=== PATIENT | male | born 1980 | race Caucasian/White ===

== ENCOUNTER 2017-04-20 03:39 | Emergency (ER) | payer SELFPAY ==
[~2017-04-20] VITALS: Ht 170.2 cm; Wt 80.0 kg
[2017-04-20 03:41] VITALS: BP 160/96; PULSE 83; RESP 16; TEMP 97.8; O2SAT 99
[2017-04-20] MEDS ORDERED: VIST50CA PO (04:21)
--- NOTE | 2017-04-20 04:27 | PD ---
HPI Chief Complaint: Anxiety Time Seen by Provider: 04:23 Travel History International Travel<30 days: No Contact w/Intl Traveler<30days: No Traveled to known affect area: No History of Present Illness HPI 36-year-old white male presents to emergency department requesting treatment for anxiety. He states that he is been having more anxiety recently. He is been having problems dealing with separation from his . He also states that he has been treated in the past for anxiety and depression. He also has a history of substance abuse. He claims that he's been sober off of alcohol for over a year. He also states that he has been recently smoking marijuana and snorting cocaine. He's been feeling more paranoid. He states that people are following him. He denies any suicidal homicidal ideation. He states that he is off his medications would like to get back on medications. He denies any toxic ingestions. PFSH Past Medical History Narrative Medical Anxiety, depression, substance abuse Anxiety: Yes Cerebrovascular Accident: No Diabetes: No Immune Disorder: No Myocardial Infarction: No Tetanus Vaccination: < 5 Years Past Surgical History Surgical History: No Previous Surgery Social History Alcohol Use: Yes Tobacco Use: Yes Substance Use: Yes (marijuana and cocaine) Allergies-Medications (Allergen,Severity, Reaction): Coded Allergies: No Known Allergies (Unverified , 04/20/17) Reported Meds & Prescriptions Reported Meds & Active Scripts Active Vistaril (Hydroxyzine Pamoate) 50 Mg Cap 50 Mg PO QID PRN Review of Systems Except as stated in HPI: all other systems reviewed are Neg Physical Exam Narrative GENERAL: This is a well-nourished, well-developed patient, in no apparent distress. SKIN: No rashes, ecchymoses or lesions. Warm and dry. Patient has track handy on both arms. HEAD: Atraumatic. Normocephalic. EYES: PERRL, EOMI, no discharge or injection. No scleral icterus. EARS: Clear NOSE: Nasal turbinates appear normal. THROAT: Mucosa pink and moist. Airway patent. NECK: Trachea midline. supple, moves head freely. LUNGS: Clear to auscultation. CV: Regular in rhythm. ABDOMEN: Soft nontender. EXT: No clubbing cyanosis or edema. Data Data Last Documented VS Vital Signs Date Time Temp Pulse Resp B/P Pulse Ox O2 Delivery O2 Flow Rate FiO2 7/2/17 03:41 97.8 83 16 160/96 99 Room Air MDM Medical Decision Making Medical Screen Exam Complete: Yes Emergency Medical Condition: Yes Medical Record Reviewed: Yes Differential Diagnosis Differential diagnoses: Anxiety, depression, substance abuse, malingering Narrative Course The patient does not meet criteria for admission on a voluntary basis. He does not meet criteria for Styles act. The patient does admit to being paranoid and having spells of anxiety. I agreed to give him a prescription for Vistaril for his anxiety and he's been advised to follow-up with [facility] tomorrow. This is anxiety, substance abuse Diagnosis Primary Impression: Anxiety Additional Impression: Substance abuse Referrals: [facility] (Out patient) 1 day [facility] Patient Instructions: General Instructions Additional Instructions: Rest. Increase fluids. Avoid alcohol. Avoid illegal substances. Vistaril. Follow-up with [facility] Follow-up with [facility] for [facility]. Do not operate a car or any heavy machinery under the influence of alcohol or drugs. Follow-up with a medical doctor this week. Return to the ER for emergencies Med/Other Pt SpecificInfo: Prescription(s) given Scripts Hydroxyzine Pamoate (Vistaril)50 Mg Cap50 Mg PO QID PRN (ANXIETY) #30 CAP Prov:Riya Morales MD 04/20/17 Disposition: 01 DISCHARGE HOME Condition: Stable Gen Guzman Apr 20, 2017 04:27
== END 2017-04-20 06:02 | disposition home or self-care (01) ==
LOC: NEPD 03:39
DX: F41.9 Anxiety disorder, unspecified (principal); F19.10 Other psychoactive substance abuse, uncomplicated
CPT/HCPCS: 99283

== ENCOUNTER 2017-09-03 14:02 | Inpatient (IN) | payer OTHER ==
[~2017-09-03] VITALS: Ht 170.2 cm; Wt 81.7 kg
[~2017-09-03 14:02] MED LIST: VIST50CA PO
[2017-09-03 17:06] VITALS: BP 140/80; PULSE 77; RESP 17; TEMP 98.5; O2SAT 100
[2017-09-03] MEDS ORDERED: ZOLO50TA PO (17:32)
[2017-09-03] MEDS ORDERED: SERO100T PO (17:34)
[2017-09-03] MEDS ORDERED: ADDE20 PO (17:34)
[2017-09-03] MEDS ORDERED: ALUMINUM/MAGNESIUM/SIMETH 30 ML CUP PO PRN (18:00)
[2017-09-03] MEDS ORDERED: hydrOXYzine HCL 50 MG TAB PO PRN (18:00)
[2017-09-03] MEDS ORDERED: MAGNESIUM HYDROXIDE SUSP 30 ML CUP PO PRN (18:00)
[2017-09-03] MEDS ORDERED: diphenhydrAMINE HCL 50 MG CAP PO PRN (18:00)
[2017-09-03] MEDS ORDERED: ACETAMINOPHEN 325 MG TAB PO PRN (18:00)
[2017-09-04 08:44] LABS: ANION GAP 7 MEQ/L (5-15); BICARBONATE 25.7 MEQ/L (21.0-32.0); BLOOD UREA NITROGEN 8 MG/DL (7-18); CHLORIDE 109 MEQ/L (98-107); GLOMERULAR FILTRATION RATE 81 ML/MIN (>89); POTASSIUM 4.5 MEQ/L (3.5-5.1); SODIUM (NA) 142 MEQ/L (136-145)
[2017-09-04 08:55] LABS: LDL CHOLESTEROL 84 MG/DL (0-99)
[2017-09-04] MEDS ORDERED: NICOTINE 21 MG/24 HR PATCH T-DERMAL SCH (09:00)
[2017-09-04] MEDS ORDERED: REMOVE OLD NICOTINE PATCH T-DERMAL SCH (09:00)
[2017-09-04] MEDS ORDERED: ACETAMINOPHEN 325 MG TAB PO PRN (11:00)
[2017-09-04] MEDS ORDERED: ALUMINUM/MAGNESIUM/SIMETH 30 ML CUP PO PRN (11:00)
[2017-09-04] MEDS ORDERED: MAGNESIUM HYDROXIDE SUSP 30 ML CUP PO PRN (11:00)
--- NOTE | 2017-09-04 11:20 | HHI.HP ---
Provisional Diagnosis Admission Date Sep 03, 2017 at 16:54 [place]. Adjustment disorder with mixed disturbances of emotion and conduct f 43.25, cocaine abuse f 43.10 Certification of Person's Competence To Provide Express and Informed Consent I have personally examined Norm Santiago , a person being served at [facility] on, Sep 04, 2017 11:04. Express and informed consent means consent voluntarily given in writing, by a competent person, after sufficient explanation and disclosure of the subject matter involved to enable the person to make a knowing and willful decision without any element of force, fraud, deceit, duress, or other form of constraint or coercion. This person is 18 years of age or older, is not now known to be incompetent to consent to treatment with a guardian advocate, and does not have a health care surrogate or proxy currently making medical treatment decisions. I have found this person to be one of the following: [xxx] Competent to provide express and informed consent, as defined above, for voluntary admission to this facility and is competent to provide express and informed consent for treatment. He/she has the consistent capacity to make well reasoned, willful, and knowing decisions concerning his or her medical or mental health treatment. The person fully and consistently understands the purpose of the admission for examination/placement and is fully capable of personally exercising all rights assured under [place] Incompetent to provide express and informed consent to voluntary admission, and this is incompetent to provide express and informed consent to treatment. The person must be transferred to involuntary status and a petition for a guardian advocate filed with the Circuit Court. [] Refusing to provide express and informed consent to voluntary admission but is competent to provide express and informed consent for treatment. The person must be discharged or transferred to involuntary status. Form shall be completed within 24 hours of a person's arrival at the receiving facility and filed in the clinical record of each person: 1. Admitted on a voluntary basis 2. Permitted to provide express and informed consent to his/her own treatment 3. Allowed to transfer from involuntary to voluntary status 4. Prior to permitting a person to consent to his or her own treatment after having been previously found incompetent to consent to treatment. History of Present Illness Capacity: Has Capacity Psych Chief Complaint: suicidal ideation HPI Patient is a 37-year-old white male who is a transfer here under [facility]les act dated 09/03/17 at 8:17 AM signed by a Uzair Espino at [facility] that documented reviewed and agreed with essentially stating. Patient states " I just don't want to live anymore" patient reports suicidal ideation due to drug abuse history and family issues. Patient seen screened in that ED urine toxicology positive for cocaine. Patient transferred for here once medically cleared there. Patient seen on his room and 2600 with RYAN gould and medical student Deshaun. Patient alert oriented white male somewhat scruffy in appearance. Stating he is had a long history of substance abuse including cocaine and opiates including intravenous opiate use. He states this time he is a frequent user of "mollies". He states his the living with his brother. Has had some episodes of sobriety. 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 Patient denies suicidality homicidality voices or visions. States he has been in a detox in [place] a few years ago with her rehabilitation stay after that. He denies any inpatient psychiatric hospitalizations. Is somewhat vague about outpatient psychiatric services. This and note that he may have been seen as [facility] the past without documented Vistaril and Zoloft in his past. Patient did not recognize her verify any of the medications that are listed under our med reconciliation. Patient denies any physical or sexual abuse, states his history is of addictions in his family of origin. He states she's been and twice he has 3 children with whom he has little contact. At this time patient does not meet Styles criteria will lift Styles act patient to be discharged to himself, no Rx by me, will refer to [facility] act for follow-up, referred to NA, referred to [facility] act for outpatient voluntary substance abuse assessment. Also refer to sober houses in [facility] Review of Systems Constitutional: DENIES: Diaphoretic episodes, Fatigue, Fever, Weight gain, Weight loss, Chills, Dizziness, Change in appetite, Night Sweats Endocrine: DENIES: Heat/cold intolerance, Polydipsia, Polyuria, Polyphagia Eyes: DENIES: Blurred vision, Diplopia, Eye inflammation, Eye pain, Vision loss , Photosensitivity, Double Vision Ears, nose, mouth, throat: DENIES: Tinnitus, Hearing loss, Vertigo, Nasal discharge, Oral lesions, Throat pain, Hoarseness, Ear Pain, Running Nose, Epistaxis, Sinus Pain, Toothache, Odynophagia Respiratory: DENIES: Apneas, Cough, Snoring, Wheezing, Hemoptysis, Sputum production, Shortness of breath Cardiovascular: DENIES: Chest pain, Palpitations, Syncope, Dyspnea on Exertion , PND, Lower Extremity Edema, Orthopnea, Claudication Gastrointestinal: DENIES: Abdominal pain, Black stools, Bloody stools, Constipation, Diarrhea, Nausea, Vomiting, Difficulty Swallowing, Anorexia Genitourinary: DENIES: Sexual dysfunction, Urinary frequency, Urinary incontinence, Urgency, Hematuria, Dysuria, Nocturia, Penile Discharge, Testicular Pain, Testicular Swelling Musculoskeletal: DENIES: Joint pain, Muscle aches, Stiffness, Joint Swelling, Back pain, Neck pain Integumentary: DENIES: Abnormal pigmentation, Nail changes, Pruritus, Rash Hematologic/lymphatic: DENIES: Bruising, Lymphadenopathy Immunologic/allergic: DENIES: Eczema, Urticaria Neurologic: DENIES: Abnormal gait, Headache, Localized weakness, Paresthesias, Seizures, Speech Problems, Tremor, Poor Balance Psychiatric: COMPLAINS OF: Anxiety (mild) Past Psych History Psychological trauma history Denies Violence risk - others (6 mos) Denies Violence risk - self (6 mos) Denies Substance Abuse History Drugs/Alcohol past 12 months Active cocaine use history of opiate abuse Past Family Social History Coded Allergies: No Known Allergies (Unverified Allergy, Unknown, 09/03/17) Active Scripts Hydroxyzine Pamoate (Vistaril) 50 Mg Cap, 50 MG PO QID Y for ANXIETY, #30 CAP Prov:Riya Morales MD 04/20/17 Reported Medications Quetiapine (Seroquel) 100 Mg Tab, 150 MG PO HS, #30 TAB 0 Refills 09/03/17 Amphetamine-Dextroamphetamine (Adderall) 20 Mg Tab, 20 MG PO DAILY for Hyperactivity Control, #30 TAB 0 Refills Avoid late evening doses. Space doses at least 4 to 6 hours if more than once/day dosing. 09/03/17 Sertraline (Zoloft) 50 Mg Tab, 50 MG PO DAILY, #30 TAB 0 Refills 09/03/17 Current Medications Medications (Trade) Dose Ordered Sig/Pito Route Start Time Stop Time Status Last Admin (Benadryl) 50 mg HS PRN PO 09/03/17 18:00 (Tylenol) 650 mg Q4H PRN PO 09/03/17 18:00 (Milk Of Magnesia Liq) 30 ml DAILY PRN PO 09/03/17 18:00 (Mag-Al Plus Susp Liq) 30 ml Q6H PRN PO 09/03/17 18:00 (Habitrol 21 Mg Patch.24 Hr) 1 patch DAILY T-DERMAL 09/04/17 09:00 09/04/17 09:44 (Atarax) 50 mg Q6H PRN PO 09/03/17 18:00 Miscellaneous Information 1 DAILY T-DERMAL 09/04/17 09:00 Family Psych History Patient states addictive issues in his family of origin Social History Patient twice with 3 children that he has little contact with Patient's Strengths (min. 2) Patient verbal able [facility] Physical Exam Patient seen screened for [facility] and medically cleared. At the present time patient resting quietly in his room on 2600, is in no acute distress, no respiratory distress, no complaints of abdominal pain. Patient moves all 4 extremities out difficulty. No abnormal motor movements noted Vital Signs Vital Signs Date Time Temp Pulse Resp B/P (MAP) Pulse Ox O2 Delivery O2 Flow Rate FiO2 09/03/17 17:06 98.5 77 17 140/80 (100) 100 Lab Results Test 09/04/17 07:21 Blood Urea Nitrogen 8 MG/DL Creatinine 1.03 MG/DL Random Glucose 82 MG/DL Calcium Level 8.9 MG/DL Sodium Level 142 MEQ/L Potassium Level 4.5 MEQ/L Chloride Level 109 MEQ/L Carbon Dioxide Level 25.7 MEQ/L Anion Gap 7 MEQ/L Estimat Glomerular Filtration Rate 81 ML/MIN Triglycerides Level 97 MG/DL Cholesterol Level 149 MG/DL LDL Cholesterol 84 MG/DL HDL Cholesterol 46.0 MG/DL Cholesterol/HDL Ratio 3.23 RATIO Thyroid Stimulating Hormone 3rd Gen 0.855 uIU/ML Mental Status Examination Appearance: Appropriate Consciousness: Alert Orientation: x4 Motor Activity: Normal gait Speech: Unremarkable Language: Adequate Fund of Knowledge: Adequate Attention and Concentration: Other (fair) Memory: Unremarkable Mood: Other (euthymic to mildly dysphoric) Affect: Other (slight decreased range and intensity of affect) Thought Process & Associations: Intact Thought Content: Appropriate Hallucination Type: None Delusion Type: None Suicidal Ideation: No (denies) Suicidal Plan: No (denies) Suicidal Intention: No (denies) Homicidal Ideation: No Homicidal Plan: No Homicidal Intention: No Insight: Poor Judgment: Poor Assessment & Plan Problem List: (1) Adjustment disorder with mixed disturbance of emotions and conduct ICD Codes: F43.25 - Adjustment disorder with mixed disturbance of emotions and conduct (2) Cocaine abuse ICD Codes: F14.10 - Cocaine abuse, uncomplicated Assessment & Plan Estimated LOS: days at this time patient does not meet Styles criteria will lift Styles act allow patient to be discharged from self. No Rx by me. First her act for further assessment, refer [place] [facility] outpatient voluntary substance abuse assessment referred to NA, patient to be given sober living referrals Discharge Planning See above Request HC Surrog/Guard Advoc?: Miguel Mo MD Sep 04, 2017 11:20
--- NOTE | 2017-09-04 11:27 | HHI.DS ---
Psychiatry Discharge Summary Inpatient Psychiatric care?: Yes Advance Directive: No Reason Not Provided: Due to Patient Condition Mental Health AdvanceDirective: No Health Care Proxy: No Admission Admission Date Sep 03, 2017 at 16:54 Admission Diagnosis: (1) Cocaine abuse ICD Code: F14.10 - Cocaine abuse, uncomplicated (2) Adjustment disorder with mixed disturbance of emotions and conduct ICD Code: F43.25 - Adjustment disorder with mixed disturbance of emotions and conduct Brief History Patient is a 37-year-old white male who is a transfer here under Styles act dated 09/03/17 at 8:17 AM signed by a Uzair Espino at [facility] that documented reviewed and agreed with essentially stating. Patient states " I just don't want to live anymore" patient reports suicidal ideation due to drug abuse history and family issues. Patient seen screened in that ED urine toxicology positive for cocaine. Patient transferred for here once medically cleared there. Patient seen on his room and 2600 with RYAN gould and medical student Deshaun. Patient alert oriented white male somewhat scruffy in appearance. Stating he is had a long history of substance abuse including cocaine and opiates including intravenous opiate use. He states this time he is a frequent user of "mollies". He states his the living with his brother. Has had some episodes of sobriety. 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 Patient denies suicidality homicidality voices or visions. States he has been in a detox in [place] a few years ago with her rehabilitation stay after that. He denies any inpatient psychiatric hospitalizations. Is somewhat vague about outpatient psychiatric services. This and note that he may have been seen as [facility] the past without documented Vistaril and Zoloft in his past. Patient did not recognize her verify any of the medications that are listed under our med reconciliation. Patient denies any physical or sexual abuse, states his history is of addictions in his family of origin. He states she's been and twice he has 3 children with whom he has little contact. At this time patient does not meet Stephani criteria will lift Styles act patient to be discharged to himself, no Rx by me, [facility], referred to NA, [facility] for outpatient voluntary substance abuse assessment. Also refer to sober houses in [facility] Tobacco Use In Past 30 Days: 5 or More Cigarettes/Day Alcohol Use: 2-3 Times Per Week Hospital Course Please see above note dictated under brief history, at this time patient does not meet Styles criteria. Patient denies suicidality homicidality voices or visions. Patient to be discharged to himself, no Rx by me, referred to Trae fried for further assessment, referred to Trae fried outpatient voluntary substance abuse assessment, referred to NA. Patient given list of resources for sober living Results Blood Pressure 140 / 80 Vital Signs Date Time Temp Pulse Resp B/P (MAP) Pulse Ox O2 Delivery O2 Flow Rate FiO2 09/03/17 17:06 98.5 77 17 140/80 (100) 100 Laboratory Tests Test 09/04/17 07:21 Chloride Level 109 MEQ/L (98-107) Estimat Glomerular Filtration Rate 81 ML/MIN (>89) Laboratory Results Test 09/04/17 07:21 Cholesterol Level 149 MG/DL (120-200) HDL Cholesterol 46.0 MG/DL (40.0-60.0) LDL Cholesterol 84 MG/DL (0-99) Triglycerides Level 97 MG/DL (42-150) Summary of Procedures None done Pending results at discharge: No Medications # of Antipsychotic meds at D/C: 0 Approp Antipsych med options 1 - Minimum of three failed multiple trials of monotherapy. 2 - Documented plan to taper to monotherapy due to previous use of multiple meds OR cross-taper in progress at D/C. 3 - Documentation of augmentation of Clozapine. 4 - Justification other than those listed in allowable values 1-3, document here : Discharge Discharge Date: Sep 04, 2017 Discharge Diagnosis: (1) Cocaine abuse Diagnosis: Secondary ICD Code: F14.10 - Cocaine abuse, uncomplicated (2) Adjustment disorder with mixed disturbance of emotions and conduct Diagnosis: Principal ICD Code: F43.25 - Adjustment disorder with mixed disturbance of emotions and conduct Pt Condition on Discharge: Stable Discharge Disposition: Discharge Home Discharge Instructions Diet Instructions: As Tolerated, No Restrictions Activities you can perform: Regular-No Restrictions Scheduled Appointment: Trae Fried Discharge Time > 30 minutes Mental Status Examination Appearance: Appropriate Consciousness: Alert Orientation: x4 Motor Activity: Normal gait Speech: Unremarkable Language: Adequate Fund of Knowledge: Adequate Attention and Concentration: Other (fair) Memory: Unremarkable Mood: Other (euthymic to mildly dysphoric) Affect: Other (slight decreased range and intensity of affect) Thought Process & Associations: Intact Thought Content: Appropriate Hallucination Type: None Delusion Type: None Suicidal Ideation: No (denies) Suicidal Plan: No (denies) Suicidal Intention: No (denies) Homicidal Ideation: No Homicidal Plan: No Homicidal Intention: No Insight: Poor Judgment: Poor Discharge/Advance Care Plan Health Problems: (1) Adjustment disorder with mixed disturbance of emotions and conduct (2) Cocaine abuse Goals to promote your health * To prevent worsening of your condition and complications * To maintain your health at the optimal level Directions to meet your goals Take your medications as prescribed Follow your dietary instruction Follow activity as directed Keep your appointments as scheduled Take your immunizations and boosters as scheduled If your symptoms worsen call your PCP, if no PCP go to Urgent Care Center or Emergency Room For 12/05 questions related to your inpatient stay or results of tests pending at discharge, please contact Dr. Miguel Campbell at Smoking is Dangerous to Your Health. Avoid second hand smoking Miguel Campbell MD Sep 04, 2017 11:27
[2017-09-04] MEDS ORDERED: amLODIPine BESYLATE 5 MG TAB PO SCH (11:30)
[2017-09-04 11:56] LABS: HEMOGLOBIN A1a 0.8 %; HEMOGLOBIN A1b 1.6 %; HEMOGLOBIN Ao 86.5 %; HEMOGLOBIN LA1C 1.9 %; HEMOGLOBIN P3 3.4 %
[2017-09-04] MEDS ORDERED: PILL SPLITTER OTHER PRN (12:00)
--- NOTE | 2017-09-04 12:21 | PD.CONS ---
[facility] Reason for Consult Medical management Primary Care Physician No Primary Care Physician Diagnoses: History of Present Illness 37 years old male with history of cocaine abuse, alcohol abuse which she denied but it's documented in EMR, who was admitted to the psychiatry unit on a voluntary base after he expressed suicidal ideation, patient told me he has a history of hepatitis C, and sometimes he get "kidney pain because of the hepatitis C ". Pressure was documented to be elevated on several occasions. Patient currently denied any chest pain short of breath, headache, nausea vomiting abdominal pain diarrhea constipation dysuria urgency or frequency, or back pain. Review of Systems All systems reviewed and was positive for what is mentioned in history of present illness otherwise negative Past Family Social History Allergies: Coded Allergies: No Known Allergies (Unverified Allergy, Unknown, 09/03/17) Past Medical History Hepatitis C ? Hypertension Past Surgical History Oral dental surgery in the past Family History Positive history of drug abuse in the family as per the EMR Social History with 3 children, positive alcohol cocaine, opiate abuse, tobacco abuse Physical Exam Vital Signs Vital Signs Date Time Temp Pulse Resp B/P (MAP) Pulse Ox O2 Delivery O2 Flow Rate FiO2 09/03/17 17:06 98.5 77 17 140/80 (100) 100 Physical Exam GENERAL: This is a well-nourished, well-developed patient, in no apparent distress. SKIN: No rashes, warm and dry HEAD: Atraumatic. Normocephalic. EYES: Pupils equal round and reactive. Extraocular motions intact. No scleral icterus. ENT: Nose without bleeding, or drainage, Airway patent. NECK: Trachea midline. Supple CARDIOVASCULAR: Regular rate and rhythm without murmurs, gallops, or rubs. RESPIRATORY: Fair air entry bilaterally. No wheezes, rales, or rhonchi. GASTROINTESTINAL: Abdomen soft, non-tender, nondistended. Positive bowel sounds MUSCULOSKELETAL: Extremities without clubbing, cyanosis, or edema. Pedal pulses appreciated NEUROLOGICAL: Awake and alert. Moves all extremity. Normal speech.no focal neurological deficit Laboratory Laboratory Tests Test 09/04/17 07:21 Blood Urea Nitrogen 8 Creatinine 1.03 Random Glucose 82 Calcium Level 8.9 Sodium Level 142 Potassium Level 4.5 Chloride Level 109 Carbon Dioxide Level 25.7 Anion Gap 7 Estimat Glomerular Filtration Rate 81 Triglycerides Level 97 Cholesterol Level 149 LDL Cholesterol 84 HDL Cholesterol 46.0 Cholesterol/HDL Ratio 3.23 Thyroid Stimulating Hormone 3rd Gen 0.855 Result Diagram: 09/04/17 0721 Assessment and Plan Assessment and Plan 37 years old male admitted for Adjustment disorder with suicidal component: Managed by psych History of hep C: To be managed as an outpatient Elevated blood pressure/newly documented hypertension: We'll check UA to look for proteinuria, started on low dose Norvasc 2.5 mg, hold for blood pressure less than 130/80, avoid beta sandra, if proteinuria exist may need to start low dose LEONILA inhibitor, I encouraged following up with PCP as an outpatient IVDU cocaine and opiate, lengthy discussion with the patient counseled for abstinent, also discussed with Trae lei at the bedside Alcohol abuse: Counseled extensively Patient medically seems to be stable for discharge thank you at this consultation Discussed Condition With Patient and [facility] agent Avel Guzman MD Sep 04, 2017 12:21
== END 2017-09-04 13:35 | disposition home or self-care (01) | DRG 882 ==
LOC: H260 16:54
PROVIDERS: ADMIT Psychiatry & Neurology Psychiatry; ATTEND Psychiatry & Neurology Psychiatry
DX: F43.25 Adjustment disorder with mixed disturbance of emotions and conduct (principal); R45.851 Suicidal ideations; I10 Essential (primary) hypertension; F14.10 Cocaine abuse, uncomplicated; F11.10 Opioid abuse, uncomplicated; F10.10 Alcohol abuse, uncomplicated; F17.210 Nicotine dependence, cigarettes, uncomplicated; Z86.19 Personal history of other infectious and parasitic diseases; Z81.3 Family history of other psychoactive substance abuse and dependence
CPT/HCPCS: 80048; 80061; 83036; 84443